=== PATIENT | male | born 1985 | race Caucasian/White ===

== ENCOUNTER 2017-02-02 06:31 | Emergency (ER) | payer BC ==
[~2017-02-02] VITALS: Ht 175.3 cm; Wt 87.5 kg
[~2017-02-02 06:31] MED LIST: AMOXICILLIN500 M1 PO; FLEXERIL PO; IBUPROFEN PO; KEPPRA500 M2 PO; KETOPROFEN PO; NAPROXEN PO; PENICILLIN; PHENERGAN PO; RONDEC-DM ORAL30 ML PO; TYLENOL COLD SE1 TAB PO; ULTRAM PO; ZITHROMAX PO
== END 2017-02-02 08:06 | disposition home or self-care (01) ==
LOC: SED 06:31
DX: H10.9 Unspecified conjunctivitis (principal); Z88.5 Allergy status to narcotic agent; F17.200 Nicotine dependence, unspecified, uncomplicated
CPT/HCPCS: 99283